=== PATIENT | female | born 2000 | race African-American/Black ===

== ENCOUNTER 2021-05-04 20:44 | Emergency (ER) | payer OTHER ==
[2021-05-04 20:51] VITALS: BP 127/85; PULSE 99; TEMP 98; BMI 24.0
[2021-05-04] MEDS ORDERED: hydrOXYzine PAMOATE 25 MG CAPSULE (FP) PO ONE ×2 (21:57→22:00)
== END 2021-05-04 22:36 | disposition home or self-care (01) ==
LOC: JER 20:44
DX: Z86.59 Personal history of other mental and behavioral disorders (principal)
CPT/HCPCS: 99283-25